=== PATIENT | female | born 1985 | race American Indian/Alaskan Native ===

== ENCOUNTER 2019-06-04 17:55 | Emergency (ER) | payer SELFPAY ==
[2019-06-04 18:50] VITALS: BP 124/80
--- NOTE | 2019-06-04 18:50 | Event Note ---
ED Screening Note ED Screening Note: vaginal discharge that began two days ago no dysuria no urinary frequency no abd pain no fever no vomiting no diarrhea PMHx none no allergies to meds LNMP: end april vitals are normal on exam: no acute distress, no toxic appearing normal heart sounds, no gallops, no rubs, no murmurs normal lung sounds bilaterally, no w/r/r no abdominal TTP, no guarding, no rebound, no rigidity, normal bowel sounds, no murphys or mcburneys tenderess
--- NOTE | 2019-06-04 18:55 | Emergency Department Report ---
Chief Complaint: Urogenital-Female Stated Complaint: VAGINAL DISCHARGE Time Seen by Provider: 06/04/19 18:47 - HPI History of Present Illness: vaginal discharge that began two days ago no dysuria no urinary frequency no abd pain no fever no vomiting no diarrhea PMHx none no allergies to meds LNMP: end april vitals are normal on exam: no acute distress, no toxic appearing normal heart sounds, no gallops, no rubs, no murmurs normal lung sounds bilaterally, no w/r/r no abdominal TTP, no guarding, no rebound, no rigidity, normal bowel sounds, no murphys or mcburneys tenderess no clinical s/sx of PID or TOA at this time no urinary sx pt is presenting with a non medical emergency at this time medical screening examination peformed and there is no threat to life or limb at this time pt will be referred to health department, primary care clinics, and [facility] pt eloped prior to receiving discharge paperwork - Exam Vital Signs: Vital Signs 06/04/19 18:48 Temperature 98 F Pulse Rate 66 Respiratory 16 Rate Blood Pressure 124/80 O2 Sat by Pulse 100 Oximetry MSE screening note: Focused history and physical exam performed. ED Disposition for MSE Clinical Impression: Encounter for medical screening examination Disposition: Z- MED SCREENING EXAM-LEFT Is pt being admited?: No Does the pt Need Aspirin: No Condition: Stable Instructions: Vaginitis (ED) Additional Instructions: please follow up with health department, primary care clinic, or [facility] in the next 2-3 days for further evaluation and examination. return to the emergency room for any new or worsening symptoms. Referrals: GUILHERME ARIAS MD [Staff Physician] - 3-5 Days [facility] [Outside] - 3-5 Days [facility] [Outside] - 3-5 Days [facility] [Provider Group] - 3-5 Days Time of Disposition: 18:54 Print Language: SWISS
== END 2019-06-04 19:00 | disposition left against medical advice (07) ==
LOC: ED 17:55
DX: N89.8 Other specified noninflammatory disorders of vagina (principal); Z53.21 Procedure and treatment not carried out due to patient leaving prior to being seen by health care provider